=== PATIENT | male | born 1980 | race Caucasian/White ===

== ENCOUNTER 2021-03-17 13:53 | Outpatient (CLI) | payer OTHER | END 2021-03-17 13:54 | disposition critical access hospital (66) | LOC: EMS 13:53 | DX: M54.50 Low back pain, unspecified (principal); R20.2 Paresthesia of skin; V54.5XXA Driver of pick-up truck or van injured in collision with heavy transport vehicle or bus in traffic accident, initial encounter; Y92.413 State road as the place of occurrence of the external cause | CPT/HCPCS: A0425; A0429 ==

== ENCOUNTER 2021-03-17 14:19 | Emergency (ER) | payer OTHER ==
[2021-03-17] MEDS ORDERED: HYDROcod/ACETAM 5/325 MG TABLET PO STA ×2 (15:11→17:21)
[2021-03-17] MEDS ORDERED: CYCLOBENZAPRINE 10 MG TABLET PO STA (15:14)
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
[2021-03-17] MEDS: KETOROLAC 60 MG/2 ML VIAL IM STA ×2 (15:25→15:30)
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
[2021-03-17 17:26] VITALS: BP 146/83
== END 2021-03-17 17:43 | disposition home or self-care (01) ==
LOC: EDBD → ED 14:19
DX: S39.012A Strain of muscle, fascia and tendon of lower back, initial encounter (principal); S16.1XXA Strain of muscle, fascia and tendon at neck level, initial encounter; V44.5XXA Car driver injured in collision with heavy transport vehicle or bus in traffic accident, initial encounter; Y92.411 Interstate highway as the place of occurrence of the external cause
CPT/HCPCS: 74176; 99283; 99284; A9270

== ENCOUNTER 2023-05-11 18:48 | Outpatient (CLI) | payer OTHER ==
[2023-05-11 19:09] LABS: BASOPHILS # (AUTO) 0.1 10^3/uL (0.0-0.1); BASOPHILS % (AUTO) 0.8 %; EOSINOPHILS # (AUTO) 0.3 10^3/uL (0.0-0.7); EOSINOPHILS % (AUTO) 5.1 %; HCT - HEMATOCRIT 47.6 % (42.0-52.0); HGB - HEMOGLOBIN 16.6 g/dL (14.0-18.0); LYMPHOCYTES # (AUTO) 2.8 10^3/uL (1.5-3.5); LYMPHOCYTES % (AUTO) 47.3 %; MEAN CORPUSCULAR HEMOGLOBIN 30.4 pg (27.0-31.0); MEAN CORPUSCULAR HGB CONC 34.9 g/dL (32.0-36.0); MEAN CORPUSCULAR VOLUME 87.2 fL (80.0-94.0); MONOCYTES # (AUTO) 0.5 10^3/uL (0.0-1.0); MONOCYTES % (AUTO) 7.9 %; NEUTROPHILS # (AUTO) 2.3 10^3/uL (1.5-6.6); NEUTROPHILS % (AUTO) 38.2 %; PLT - PLATELET COUNT 164 10^3/uL (130-450); RED BLOOD COUNT 5.46 10^6/uL (4.70-6.10); RED CELL DISTRIBUTION WIDTH 12.5 % (12.0-15.0); WHITE BLOOD COUNT 5.9 x10^3/uL (4.8-10.8)
[2023-05-11 19:26] LABS: ALBUMIN 4.2 g/dL (3.2-5.5); ALBUMIN/GLOBULIN RATIO 1.4 (1.0-2.2); ALKALINE PHOSPHATASE 76 IU/L (42-121); ALT ALANINE AMINOTRANSFERASE 69 IU/L (10-60); AST ASPARTATE AMINOTRANSFERASE 39 IU/L (10-42); BILIRUBIN,TOTAL 0.5 mg/dL (0.2-1.0); BUN - BLOOD UREA NITROGEN 15 mg/dL (6-20); CALCIUM 9.2 mg/dL (8.5-10.3); CARBON DIOXIDE - CO2 28 mmol/L (21-32); CHLORIDE 100 mmol/L (101-111); CHOL/HDL RATIO 4.8 (<5.0); CHOLESTEROL 157 mg/dL; CREATININE 0.7 mg/dL (0.6-1.3); GFR - MDRD 124 (>89); GLUCOSE 87 mg/dL (74-104); HDL CHOLESTEROL 33 mg/dL; LDL CHOLESTEROL,CALCULATED 87 mg/dL; LDL/HDL RATIO 2.6 (<3.6); SODIUM 133 mmol/L (135-145); TOTAL PROTEIN 7.3 g/dL (6.4-8.9); TRIGLYCERIDES 185 mg/dL (48-352); VLDL CHOLESTEROL 37 mg/dL
[2023-05-11 19:30] LABS: BILIRUBIN,URINE NEGATIVE (NEGATIVE); GLUCOSE, URINE (UA) NEGATIVE (NEGATIVE); KETONES,URINE (UA) NEGATIVE (NEGATIVE); LEUKOCYTE ESTERASE, URINE NEGATIVE (NEGATIVE); NITRITE,URINE NEGATIVE (NEGATIVE); OCCULT BLOOD,URINE NEGATIVE (NEGATIVE); PROTEIN,URINE NEGATIVE (NEGATIVE); UROBILINOGEN,URINE 0.2 (NORMAL) E.U./dL (NORMAL)
[2023-05-11 19:37] LABS: THYROID STIMULATING HORMONE 1.13 uIU/mL (0.34-5.60)
[2023-05-11 20:02] LABS: CLARITY,URINE CLEAR (CLEAR); RBC,URINE 0-5 /HPF (0-5); WBC,URINE 0-3 /HPF (0-3)
[2023-05-11 20:03] LABS: BACTERIA,URINE None Seen /HPF (None Seen); MUCUS,URINE Moderate Strands; SQUAMOUS EPITHELIAL CELL,UR NONE SEEN (<= Few)
[2023-05-12 00:19] LABS: CHLAMYDIA TRACHOMATIS DNA NEGATIVE (NEGATIVE); NEISSERIA GONORRHOEAE DNA NEGATIVE (NEGATIVE); TRICHOMONAS VAGINALIS DNA NEGATIVE (NEGATIVE)
[2023-05-13 02:08] LABS: RPR Non Reactive (Non Reactive)
[2023-05-13 04:08] LABS: HIV SCREEN 4TH GENERATION Non Reactive (Non Reactive)
[2023-05-13 07:08] LABS: HSV 1 IGG TYPE SPEC <0.91 index (0.00-0.90); HSV 2 IGG TYPE SPEC <0.91 index (0.00-0.90)
== END 2023-05-11 18:49 | disposition home or self-care (01) ==
LOC: LAB 18:48
PROVIDERS: ATTEND Nurse Practitioner
DX: R53.83 Other fatigue (principal); Z13.220 Encounter for screening for lipoid disorders; Z20.2 Contact with and (suspected) exposure to infections with a predominantly sexual mode of transmission; M54.50 Low back pain, unspecified; G89.29 Other chronic pain; F41.9 Anxiety disorder, unspecified; F32.A Depression, unspecified
CPT/HCPCS: 36415; 80053; 80061; 81001; 83721; 84443; 85025; 86592; 86695; 86696; 87389; 87491; 87591; 87661

== ENCOUNTER 2023-06-12 15:42 | Outpatient (CLI) | payer OTHER ==
--- NOTE | 2023-06-13 08:32 | MRI Report ---
PROCEDURE: Lumbar Spine WO INDICATIONS: LOW THORACIC BACK PAIN TECHNIQUE: Noncontrast sagittal T1 spin echo and T2 fast echo, sagittal STIR, axial T1 and T2 fast spin echo thr ough the lumbar spine. In cases with scoliosis, additional coronal T2 fast spin echo may be performe d. COMPARISON: None. FINDINGS: Image quality: Excellent. Alignment and Curvature: There is normal bony alignment. Bone Marrow: Marrow is of normal overall signal. No acute vertebral body compression fractures. Spinal Cord: Conus medullaris terminates at the L2 level. Visualized cord demonstrates normal signa l and size. Paraspinous Soft Tissues: No paravertebral masses. T12-L1: Normal in appearance. L1-L2: Normal in appearance. L2-L3: Normal in appearance. L3-L4: Normal in appearance. L4-L5: Very early facet hypertrophy. No canal stenosis or foraminal stenosis. L5-S1: Mild facet hypertrophy. No canal stenosis or foraminal stenosis. IMPRESSION: 1. No canal stenosis or foraminal stenosis. 2. Mild lower lumbar facet arthropathy. Reviewed by: Alex Leung MD on 06/13/2023 8:31 AM PST Approved by: Alex Leung MD on 06/13/2023 8:31 AM PST Station ID: [id number]
--- NOTE | 2023-06-13 08:33 | MRI Report ---
PROCEDURE: Thoracic Spine WO INDICATIONS: THORACIC BACK PAIN TECHNIQUE: Noncontrast sagittal T1 spine echo and T2 fast spin echo, sagittal STIR, axial T1 and T2 fast spin ec ho through the thoracic spine. COMPARISON: None. FINDINGS: Image quality: Excellent. Alignment and Curvature: There is normal bony alignment. Bone Marrow: Marrow is of normal overall signal. No acute vertebral body compression fractures. Spinal Cord: Visualized spinal cord is normal in size and signal. Paraspinous Soft Tissues: No paravertebral masses. Miscellaneous: On axial images, central canal and foramina appear widely patent at all scanned level s. IMPRESSION: Unremarkable thoracic spine MRI. No canal stenosis or foraminal stenosis. Reviewed by: Alex Leung MD on 06/13/2023 8:32 AM PST Approved by: Alex Leung MD on 06/13/2023 8:32 AM PST Station ID: [id number]
--- NOTE | 2023-06-13 08:42 | MRI Report ---
PROCEDURE: Cervical Spine WO INDICATIONS: CERVICAL RADICULOPTHY TECHNIQUE: Noncontrast sagittal T1 spin echo and T2 fast spin echo, sagittal STIR, foraminal oblique sagittal T2 fast spin echo, and axial gradient echo or T2 fast spin echo through the cervical spine. COMPARISON: None. FINDINGS: Image quality: Excellent. Alignment and Curvature: There is normal bony alignment. Bone Marrow: Marrow demonstrates normal overall signal. Spinal Cord: Visualized spinal cord has normal size and signal. No cerebellar tonsillar herniation. Paraspinous Soft Tissues: No paravertebral masses. Prevertebral soft tissues are normal in thicknes s. C2-C3: Right facet hypertrophy. No canal stenosis or foraminal stenosis. C3-C4: Short pedicles. Minimal disc bulge. AP diameter of the central canal is 9.8 mm. Foramina ar e patent. C4-C5: Short pedicles. Mild central posterior disc protrusion, minimally eccentric to the right. Ind entation on the ventral cord. AP diameter of the central canal is 8.5 mm. Right uncovertebral joint h ypertrophy. Moderate right foraminal narrowing with flattening deformity on the exiting right C5 nerv e root. C5-C6: Short pedicles. Diffuse posterior disc bulge, eccentric to the right, flattening the cord. AP diameter of the central canal is 8.4 mm. Prominent right uncovertebral joint osteophyte. Right facet hypertrophy. Moderate to severe right foraminal narrowing with a degree of right foraminal C6 nerve root impingement. C6-C7: Disc bulge. AP diameter of the central canal is 9.7 mm. Mild bilateral uncovertebral joint hy pertrophy. Right facet hypertrophy. Moderate right foraminal narrowing with mild flattening deformity on the exiting right C7 nerve root. C7-T1: No canal stenosis. Right facet hypertrophy and uncovertebral joint hypertrophy. Focal moderat e right foraminal narrowing. IMPRESSION: 1. 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 2. Canal stenosis is mild at C3-C4, moderate at C4-C5, moderate to severe at C5-C6, and mild at C6-C7 . 3. Multilevel right-sided foraminal narrowing. Findings include moderate right foraminal narrowing at C4-C5, moderate to severe right foraminal narrowing at C5-C6, moderate right foraminal narrowing at C6-C7, and moderate foraminal narrowing at C7-T1. Reviewed by: Alex Leung MD on 06/13/2023 8:41 AM PST Approved by: Alex Leung MD on 06/13/2023 8:41 AM PST Station ID: [id number]
--- NOTE | 2023-06-13 10:21 | MRI Report ---
PROCEDURE: Pelvis WO INDICATIONS: SACROILITIS TECHNIQUE: Noncontrast coronal T1 spin echo and STIR through the bony pelvis. Sagittal T2 FSE with fat saturati on, oblique axial PD FSE and T2 FSE with fat saturation through the symphysis pubis. COMPARISON: None. FINDINGS: Image quality: Excellent. Bony structures: There is no marrow edema. No fracture or dislocation. Mild bilateral superior hip niesha int space narrowing and subchondral sclerosis is seen. Bilateral sacroiliac joint spaces are well pre served. No bony erosion or ankylosis. No edema adjacent to the sacroiliac joints to suggest active sa croiliitis. No suspicious bony lesion. Subcortical cystic changes are noted involving right femoral h ead neck junction with prominence of bilateral superior anterior femoral head neck junction which can be seen associated with cam-type femoral acetabular impingement. Tendons and muscles: Mild bilateral distal gluteus medius and minimus tendinosis at their insertions on greater trochanter is seen, without associated muscle atrophy. The iliopsoas tendon appears intac t, without adjacent bursal fluid collections. The origin of the hamstring tendons are intact at the ischial tuberosities. Hip joints: Larger field of view images demonstrate no avascular necrosis of the femoral heads. Ther e is suggestion of subtle bilateral superior anterior labral tear at 12 to 1:00 position. Evaluation is limited due to lack of intra-articular contrast. Soft tissues: The proximal sciatic neurovascular bundles appear normal adjacent to the hamstring tend ons. No free pelvic fluid. Bladder wall thickness is normal. Genitourinary structures and bowel lo ops appear normal where visualized. IMPRESSION: 1. Unremarkable MRI examination of bilateral sacroiliac joints. No evidence of active sacroiliitis. N o ankylosis or bony erosion. No pelvic fracture or dislocation. 2. Prominence of bilateral superior anterior femoral head neck junction with subcortical cystic gamez es seen in right femoral head neck junction which can be seen associated with cam-type femoral acetab ular impingement. No evidence of avascular necrosis of femoral head. 3. Suggestion of distal bilateral gluteus medius and minimus tendinosis. No other muscle or tendon si gnal abnormalities. 4. In the absence of intra-articular contrast, subtle signal abnormality and fraying of superior ante rior labrum is seen concerning for subtle superior anterior labral tears. Reviewed by: Justin Cordova MD on 06/13/2023 10:20 AM PST Approved by: Justin Cordova MD on 06/13/2023 10:20 AM PST Station ID: [id number]
== END 2023-06-12 15:43 | disposition home or self-care (01) ==
LOC: DI 15:42
PROVIDERS: ATTEND Nurse Practitioner
DX: M46.1 Sacroiliitis, not elsewhere classified (principal); M48.02 Spinal stenosis, cervical region; M54.12 Radiculopathy, cervical region; M54.6 Pain in thoracic spine; M47.816 Spondylosis without myelopathy or radiculopathy, lumbar region